=== PATIENT | male | born 1995 | race Caucasian/White ===

== ENCOUNTER 2019-07-30 00:42 | Emergency (ER) | payer OTHER ==
[~2019-07-30] VITALS: Ht 175.3 cm; Wt 56.8 kg
[2019-07-30 00:42] VITALS: BP 126/72
--- NOTE | 2019-07-30 01:51 | REP ---
Clinical: Trauma. Technique: AP, lateral, bilateral oblique and sunrise views left knee . Findings: The osseous structures and joint spaces are intact and normal. There is no evidence for acute fracture or dislocation. No joint effusion is appreciated. Surrounding soft tissues are unremarkable. No subcutaneous emphysema or radiodense foreign body. Impression: Normal examination. No acute fracture or dislocation. Electronically Signed by Ankit Watson MD 07/30/2019 01:42 A
== END 2019-07-30 02:14 | disposition home or self-care (01) ==
LOC: M ED 00:42
DX: M76.52 Patellar tendinitis, left knee (principal); Z88.1 Allergy status to other antibiotic agents